=== PATIENT | female | born 1970 | race Caucasian/White ===

== ENCOUNTER 2024-05-05 12:59 | Emergency (ER) | payer OTHER, SELFPAY ==
--- NOTE | ~2024-05-05 | US_ITS ---
CLINICAL HISTORY: pain from calf to thigh Right lower extremity venous duplex ultrasound Comparison: None Findings: The visualized deep veins are fully compressible with normal flow. No popliteal cyst. Lymph nodes with normal morphology in the right groin measure 0.6 cm in short axis. Impression: No deep vein thrombosis. This document has been electronically signed by: Tierra Reyna MD on 05/05/2024 14:17:38
[2024-05-05 13:03] VITALS: BP 168/93; PULSE 95; RESP 18; TEMP 36.6; O2SAT 98; BMI 28.0
--- NOTE | 2024-05-05 13:03 | ED.LOWEXIN ---
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 No new activity, no trauma. Patient states she develops acute sharp discomfort in the calf that radiates up to the knee. No unilateral calf pain or swelling. She denies that the limb is pale or cool to touch, no paresthesia. Related Data Previous Rx's ?Medication ?Instructions ?Recorded methocarbamol 750 mg tablet 750 mg PO Q8H PRN pain, moderate 05/05/24 #14 tabs Allergies Allergy/AdvReac Type Severity Reaction Status Date / Time Penicillins [PENICILLINS] Allergy Intermediate RASH Verified 05/05/24 13:04 penicillin V Allergy Unknown Rash Verified 05/05/24 13:04 Review of Systems Review of Systems: Yes all other systems are reviewed and are negative Constitutional: Constitutional: Denies fatigue and Denies fever(s) Cardiovascular: Cardiovascular: Denies chest pain and Denies dyspnea Respiratory: Respiratory: Denies dyspnea Musculoskeletal: Musculoskeletal: Denies arthralgias, Denies joint swelling, Reports muscle cramps, Denies numbness and Denies tingling Neurologic: Denies numbness and Denies tingling Endocrine: Endocrine: Denies fatigue PMFSH Past Medical History Attestation statement: The following information was validated with the patient. Social History Social History Advance Directives: No Advance Directives Information Provided: No Do you have a plan to hurt others: No Plan Physical Exam Vital Signs: Vital Signs: Last Vital Signs Temp 98.1 F 05/05/24 22:00 Pulse 77 05/05/24 22:00 Resp 16 05/05/24 22:00 BP 161/89 H 05/05/24 22:00 Pulse Ox 98 05/05/24 22:00 O2 Del Method Room Air 05/05/24 22:00 BMI result Body Mass Index 28.0 Const: Other: Alert, well-appearing Orientation/consciousness: patient oriented x3 Resp: Other: Nonlabored respiration Cardio: Other: Normal peripheral perfusion no pedal edema Skin: Other: Warm dry no rash Neuro: General: patient oriented x3, no focal motor deficits and CN's II-XI intact bilaterally Extrem: Other: The right lower extremity is not swollen there was no overlying erythema, the limb is warm, well-perfused it is not cool to touch there was no pallor Psych: Other: Calm cooperative Course Course Course Narrative: This is a Rapid Medical Examination (RME) performed by Salas Maxwell PA-C in triage. Full HPI, ROS, assessment and treatment plan per primary provider in the Main ED. 53 yo female hx hypothyroid here for eval of deep pain that begins in her tigh lower leg and radiates up into her right hip. no back pain. no injury/ trauma. pcp prescribed muscle relaxer which she has been taking w/o improvement. no recent travel or long car rides. her son is concerned her thyroid my be contributing to her symtpoms. Plan: labs, venous duplex Medications Administered Discontinued Medications Generic Name Dose Route Start Last Admin Trade Name Freq PRN Reason Stop Dose Admin Sodium Chloride 1,000 mls @ 999 mls/hr 05/05/24 19:00 05/05/24 20:14 Ns IV 05/05/24 20:00 Infused .Q1H1M AMINA Infusion Sodium Chloride 1,000 mls @ 999 mls/hr 05/05/24 19:00 05/05/24 20:14 Ns IV 05/05/24 20:00 Infused .Q1H1M AMINA Infusion Methocarbamol 750 mg 05/05/24 20:35 05/05/24 20:55 Methocarbamol 750 Mg Tablet PO 05/05/24 20:36 750 mg ONCE ONE Administration Medical Decision Making Medical Decision Making [facility] Narrative: 53-year-old female with a 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 No new activity, no trauma. Patient states she develops acute sharp discomfort in the calf that radiates up to the knee. No unilateral calf pain or swelling. She denies that the limb is pale or cool to touch, no paresthesia. Problem: Hypothyroidism , diabetes History: Per patient I have considered the following differential diagnoses: Fracture, dislocation, DVT, arterial occlusion, septic joint, muscle cramps, peripheral neuropathy , hyperglycemia, HHS, DKA Plan: Labs and ultrasound were obtained from triage. There was no DVT. She has no mechanism of injury to suggest a fracture or dislocation and she is ambulatory, x-rays not warranted. Thought about arterial occlusion, however the limb is warm and well perfused. The pain is in the calf, not an a joint, septic joint least likely. She is having muscle cramps, perhaps she also has underlying neuropathy. We will send with a muscle relaxant, she can follow up with the primary care provider. Thyroid function was ordered from triage, unclear why given what the patient's chief complaint was. TSH markedly elevated as expected given she does not have a thyroid, her free T4 is low, she states she has struggled with this, I have relayed to her that she needs to follow up with her primary care to have her levothyroxine dosage increased. In addition, the patient was found to be hyperglycemic, but not in DKA there was no gap. She admits she did not take her insulin today, we will give IV fluids and recheck the sugar I have independently reviewed the following tests: Labs: No leukocytosis, not anemic, no electrolyte abnormality, TSH 48.99, free T4 less than 0.42, blood sugar 514, repeat after IV fluid resuscitation 259 Ultrasound right lower extremity:Right lower extremity venous duplex ultrasound Comparison: None Findings: The visualized deep veins are fully compressible with normal flow. No popliteal cyst. Lymph nodes with normal morphology in the right groin measure 0.6 cm in short axis. Impression: No deep vein thrombosis. This document has been electronically signed by: Tierra Reyna MD on 05/05/2024 14:17:38 Lab Data 05/05/24 13:20 05/05/24 13:20 Labs: Lab Results 05/05/24 05/05/24 05/05/24 Range/Units 13:20 15:29 15:29 WBC 6.6 (4.8-10.8) X10*3/uL RBC 4.85 (4.20-5.50) X10*6/uL Hgb 14.9 (12.0-16.0) g/dl Hct 39.7 (37.0-47.0) % MCV 81.9 (80.0-98.0) fL MCH 30.7 (27.0-33.0) pg MCHC 37.5 H (31.0-35.0) g/dl RDW 12.6 (11.0-16.0) % Plt Count 300 (160-400) X10*3/uL MPV 9.6 (9.4-12.3) fL Immature Gran % (Auto) 0.2 (0.0-0.4) % Neut % (Auto) 52.3 (45-73) % Lymph % (Auto) 37.1 (20-40) % [place] % (Auto) 6.8 (2-11) % Eos % (Auto) 2.7 (0-4) % Baso % (Auto) 0.9 (0-2) % Lymph # (Auto) 2.5 (1.2-4.9) X10*3/uL [place] # (Auto) 0.5 (0.1-1.2) X10*3/uL Eos # (Auto) 0.2 (0.0-0.4) X10*3/uL Baso # (Auto) 0.1 (0.0-0.2) X10*3/uL Abs Immat Gran (auto) 0.01 (0.00-0.03) X10*3/uL Absolute Neuts (auto) 3.5 (2.0-8.3) x10*3/uL Absolute Nucleated RBC 0.000 (0.0-0.012) X10*3/uL Nucleated RBC % (auto) 0.0 (0.0-0.2) /100WBC VBG pH 7.43 7.43 (7.32-7.43) VBG pCO2 52 mmHg VBG pO2 mmHg VBG HCO3 (22-26) mmol/L VBG O2 Saturation % VBG Base Excess mmol/L Sodium 131 L (135-145) mmol/L Potassium 4.1 (3.3-5.1) mmol/L Chloride 96 (96-108) mmol/L Carbon Dioxide 26 (22-29) mmol/L Anion Gap 13 (12-20) BUN 9 (9-16) mg/dL Creatinine 1.22 (0.5-1.4) mg/dL Estim Creat Clear Calc 51.3 Estimated GFR 46 POC Glucose (60-115) mg/dL Random Glucose 514 H* (60-115) mg/dL Calcium 9.9 (8.4-10.2) mg/dL Magnesium 2.0 (1.6-2.6) mg/dL Total Bilirubin 0.7 (0.0-1.0) mg/dL AST 20 (5-31) U/L ALT 20 (0-31) U/L Alkaline Phosphatase 99 (39-117) U/L Total Creatine Kinase 92 (26-140) U/L Total Protein 8.3 H (6.5-8.0) g/dL Albumin 4.7 (3.5-5.0) g/dL Beta-Hydroxybutyrate 0.20 (0.02-0.27) mmol/L TSH 48.99 H (0.32-4.0) uIU/mL Free T4 < 0.42 L (0.71-1.85) ng/dL 05/05/24 05/05/24 05/05/24 Range/Units 15:29 15:29 15:29 WBC (4.8-10.8) X10*3/uL RBC (4.20-5.50) X10*6/uL Hgb (12.0-16.0) g/dl Hct (37.0-47.0) % MCV (80.0-98.0) fL MCH (27.0-33.0) pg MCHC (31.0-35.0) g/dl RDW (11.0-16.0) % Plt Count (160-400) X10*3/uL MPV (9.4-12.3) fL Immature Gran % (Auto) (0.0-0.4) % Neut % (Auto) (45-73) % Lymph % (Auto) (20-40) % [place] % (Auto) (2-11) % Eos % (Auto) (0-4) % Baso % (Auto) (0-2) % Lymph # (Auto) (1.2-4.9) X10*3/uL [place] # (Auto) (0.1-1.2) X10*3/uL Eos # (Auto) (0.0-0.4) X10*3/uL Baso # (Auto) (0.0-0.2) X10*3/uL Abs Immat Gran (auto) (0.00-0.03) X10*3/uL Absolute Neuts (auto) (2.0-8.3) x10*3/uL Absolute Nucleated RBC (0.0-0.012) X10*3/uL Nucleated RBC % (auto) (0.0-0.2) /100WBC VBG pH (7.32-7.43) VBG pCO2 52 mmHg VBG pO2 38 38 mmHg VBG HCO3 34 H 34 H (22-26) mmol/L VBG O2 Saturation 57.0 % VBG Base Excess mmol/L Sodium (135-145) mmol/L Potassium (3.3-5.1) mmol/L Chloride (96-108) mmol/L Carbon Dioxide (22-29) mmol/L Anion Gap (12-20) BUN (9-16) mg/dL Creatinine (0.5-1.4) mg/dL Estim Creat Clear Calc Estimated GFR POC Glucose (60-115) mg/dL Random Glucose (60-115) mg/dL Calcium (8.4-10.2) mg/dL Magnesium (1.6-2.6) mg/dL Total Bilirubin (0.0-1.0) mg/dL AST (5-31) U/L ALT (0-31) U/L Alkaline Phosphatase (39-117) U/L Total Creatine Kinase (26-140) U/L Total Protein (6.5-8.0) g/dL Albumin (3.5-5.0) g/dL Beta-Hydroxybutyrate (0.02-0.27) mmol/L TSH (0.32-4.0) uIU/mL Free T4 (0.71-1.85) ng/dL 05/05/24 05/05/24 05/05/24 Range/Units 15:29 15:29 21:53 WBC (4.8-10.8) X10*3/uL RBC (4.20-5.50) X10*6/uL Hgb (12.0-16.0) g/dl Hct (37.0-47.0) % MCV (80.0-98.0) fL MCH (27.0-33.0) pg MCHC (31.0-35.0) g/dl RDW (11.0-16.0) % Plt Count (160-400) X10*3/uL MPV (9.4-12.3) fL Immature Gran % (Auto) (0.0-0.4) % Neut % (Auto) (45-73) % Lymph % (Auto) (20-40) % [place] % (Auto) (2-11) % Eos % (Auto) (0-4) % Baso % (Auto) (0-2) % Lymph # (Auto) (1.2-4.9) X10*3/uL [place] # (Auto) (0.1-1.2) X10*3/uL Eos # (Auto) (0.0-0.4) X10*3/uL Baso # (Auto) (0.0-0.2) X10*3/uL Abs Immat Gran (auto) (0.00-0.03) X10*3/uL Absolute Neuts (auto) (2.0-8.3) x10*3/uL Absolute Nucleated RBC (0.0-0.012) X10*3/uL Nucleated RBC % (auto) (0.0-0.2) /100WBC VBG pH (7.32-7.43) VBG pCO2 mmHg VBG pO2 mmHg VBG HCO3 (22-26) mmol/L VBG O2 Saturation 57.0 % VBG Base Excess 8.6 8.6 mmol/L Sodium (135-145) mmol/L Potassium (3.3-5.1) mmol/L Chloride (96-108) mmol/L Carbon Dioxide (22-29) mmol/L Anion Gap (12-20) BUN (9-16) mg/dL Creatinine (0.5-1.4) mg/dL Estim Creat Clear Calc Estimated GFR POC Glucose 259 H (60-115) mg/dL Random Glucose (60-115) mg/dL Calcium (8.4-10.2) mg/dL Magnesium (1.6-2.6) mg/dL Total Bilirubin (0.0-1.0) mg/dL AST (5-31) U/L ALT (0-31) U/L Alkaline Phosphatase (39-117) U/L Total Creatine Kinase (26-140) U/L Total Protein (6.5-8.0) g/dL Albumin (3.5-5.0) g/dL Beta-Hydroxybutyrate (0.02-0.27) mmol/L TSH (0.32-4.0) uIU/mL Free T4 (0.71-1.85) ng/dL Discharge Plan Discharge Clinical Impression: Muscle cramping Patient Disposition: Home, Self-Care Instructions: Leg Cramps (ED) Additional Instructions: The ultrasound of the right lower extremity revealed no clot. See home care instructions for your leg cramps. Use the methocarbamol as needed when cramping occurs. To medication can cause drowsiness, do not drive or operate machinery while taking the medication. Incidentally, your thyroid hormone level was low, you need to call your primary care provider to have your levothyroxine dosage increased, call tomorrow. Prescriptions: New methocarbamol 750 mg tablet 750 mg PO Q8H PRN (Reason: pain, moderate) Qty: 14 0RF Interventions: ED Discharge Assessment Last Done: 05/05/24 22:00 Print Language: Vietnamese
[2024-05-05 13:31] LABS: MANUAL DIFF FLAG NO
[2024-05-05 13:33] LABS: Basophils Absolute Auto 0.1 X10*3/uL (0.0-0.2); Basophils Percent Auto 0.9 % (0-2); Eosinophils Absolute Auto 0.2 X10*3/uL (0.0-0.4); Eosinophils Percent Auto 2.7 % (0-4); Hematocrit 39.7 % (37.0-47.0); Hemoglobin 14.9 g/dl (12.0-16.0); Imm Gran Abs Auto 0.01 X10*3/uL (0.00-0.03); Imm Gran Pct Auto 0.2 % (0.0-0.4); Lymphocytes Absolute Auto 2.5 X10*3/uL (1.2-4.9); Lymphocytes Percent Auto 37.1 % (20-40); Mean Corpuscular HGB Conc 37.5 g/dl (31.0-35.0); Mean Corpuscular Hemoglobin 30.7 pg (27.0-33.0); Mean Corpuscular Volume 81.9 fL (80.0-98.0); Mean Platelet Volume 9.6 fL (9.4-12.3); Monocytes Absolute Auto 0.5 X10*3/uL (0.1-1.2); Monocytes Percent Auto 6.8 % (2-11); Neutrophils Absolute Auto 3.5 x10*3/uL (2.0-8.3); Neutrophils Percent Auto 52.3 % (45-73); Platelet Count 300 X10*3/uL (160-400); Red Blood Count 4.85 X10*6/uL (4.20-5.50); Red Cell Distribution Width 12.6 % (11.0-16.0); White Blood Count 6.6 X10*3/uL (4.8-10.8)
[2024-05-05 14:02] LABS: Alanine Aminotransferase 20 U/L (0-31); Albumin Level 4.7 g/dL (3.5-5.0); Alkaline Phosphatase 99 U/L (39-117); Anion Gap 13 (12-20); Aspartate Amino Transferase 20 U/L (5-31); Bilirubin Total 0.7 mg/dL (0.0-1.0); Blood Urea Nitrogen 9 mg/dL (9-16); Calcium 9.9 mg/dL (8.4-10.2); Carbon Dioxide 26 mmol/L (22-29); Chloride 96 mmol/L (96-108); Creatinine Clr Calc Pharmacy 51.3; Estimated Glomerular Filt Rate 46; Glucose Random 514 mg/dL (60-115); Potassium 4.1 mmol/L (3.3-5.1); Sodium 131 mmol/L (135-145); Total Protein 8.3 g/dL (6.5-8.0)
[2024-05-05 14:11] LABS: TSH reflex Free T4 48.99 uIU/mL (0.32-4.0)
[2024-05-05 14:58] LABS: Free T4 (Free Thyroxine) < 0.42 ng/dL (0.71-1.85)
[2024-05-05 15:55] LABS: VBG Base Excess 8.6 mmol/L; VBG HCO3 34 mmol/L (22-26); VBG pCO2 52 mmHg; VBG pH 7.43 (7.32-7.43); VBG pO2 38 mmHg
[2024-05-05 15:56] LABS: VBG Base Excess 8.6 mmol/L; VBG HCO3 34 mmol/L (22-26); VBG pCO2 52 mmHg; VBG pH 7.43 (7.32-7.43); VBG pO2 38 mmHg; Venous Blood Gas Refer to POC result
[2024-05-05 17:48] VITALS: BP 158/99; PULSE 87; RESP 19; TEMP 36.1; O2SAT 98
--- OUTSIDE RECORDS SUMMARY | 2024-05-05 19:05 | XMS_ITS | Continuity of Care Document ---
Author Organization [facility] Adult Address [address] [place] [address]- Care Team Providers Care Teacher Advisor Name Role Phone Justine Kimbrough NP Primary Care Physician Encounter [facility] Date(s): 03/30/24 - 04/29/24 [facility] Adult [address] [place], [place] [address] Attending Physician: Admtr, Ar8 Admitting Physician: Admtr, Ar8 Referring Physician: Admtr, Ar8 Encounter Type: Triage Allergies, Adverse Reactions, Alerts Substance Criticality Severity Reaction Reaction Severity Status penicillin rash Active Medications albuterol 0.083% inhalation solution 3 mL = 2.5 mg, Inhalation, Every 6 hours, PRN Wheezing/Shortness of Breath, dx asthma (J45.909), # 120 each, 3 Refills, Maintenance, 03/23/24 2:10:00 PM EST, Solution, [id number], Partial fill upon patient request if the prescription is for a schedule II opioid drug., 163, cm, 03/19/24 11:00:00 EST, Height Start Date: 03/23/24 Status: Ordered Quantity: 120.0 Unit: each Repeat number: 4 Alcohol Pads See Instructions, # 350 each, Refills 3, Tot. Refills 3, Maintenance, use before insulin 4x daily E10.9 90 day, 06/21/22 1:31:00 PM EST, Supply, 163, cm, 06/21/22 12:42:00 EST, Height, 75.9, kg, 12/03/21 17:35:00 EDT, Dry Weight Start Date: 06/21/22 Stop Date: 10/19/22 Status: Ordered Quantity: 350.0 Unit: each Repeat number: 4 Dexcom G6 Creative Art Therapist Dexcom G6 Creative Art Therapist, See Instructions, # 1 each, Refills 0, Tot. Refills 0, Maintenance, Dx: E11.65 to monitor blood glucose, 08/29/23 11:42:00 AM EDT, Supply Start Date: 08/29/23 Status: Ordered Quantity: 1.0 Unit: each Repeat number: 1 Dexcom G6 Sensor 3-pack Dexcom G6 Sensor 3-pack, See Instructions, # 3 kit, Refills 8, Tot. Refills 8, Maintenance, E11.65 To monitor blood glucose. Change sensor every 10 days, 08/29/23 11:43:00 AM EDT, Supply Start Date: 08/29/23 Status: Ordered Quantity: 3.0 Unit: kit Repeat number: 9 Dexcom G6 Transmitter Dexcom G6 Transmitter, See Instructions, # 1 each, Refills 3, Tot. Refills 3, Maintenance, E11.65 To monitor blood glucose. Change every 90 days, 08/30/23 10:10:00 AM EDT, Supply, 163, cm, 08/25/23 14:48:00 EDT, Height, 75.9, kg, 12/03/21 17:35:00 EDT, Dry Weight Start Date: 08/30/23 Status: Ordered Quantity: 1.0 Unit: each Repeat number: 4 Diabetse Shoes (1 pair ) Diabetse Shoes (1 pair ), See Instructions, # 1 pack/packet, Refills 1, Tot. Refills 1, Maintenance, Wear diabetic shoes daily, E11.65, 01/17/20 2:54:00 PM EDT, Supply Start Date: 01/17/20 Status: Ordered Quantity: 1.0 Unit: pack/packet Repeat number: 2 diclofenac 1% topical gel 1 applicator, Topically, 4 times a day, # 100 Gm, 0 Refills, Maintenance, 12/15/23 2:23:00 PM EDT, Gel, [id number], Partial fill upon patient request if the prescription is for a schedule II opioid drug., 163, cm, 08/25/23 14:48:00 EDT, Height Start Date: 12/15/23 Status: Ordered Quantity: 100.0 Unit: g Repeat number: 1 EASY TOUCH ALCOHOL 70% PADS EASY TOUCH ALCOHOL 70% PADS, See Instructions, # 400 Unknown, 3 Refills, Maintenance, USE BEFORE INSULIN 4X DAILY E10.9, 08/11/23 9:34:00 PM EDT, 163, cm, 07/01/23 14:48:00 EST, Height, 75.9, kg, 12/03/21 17:35:00 EDT, Dry Weight Start Date: 08/11/23 Status: Ordered Quantity: 400.0 Unit: Unknown Repeat number: 1 esomeprazole 40 mg oral enteric coated capsule 1 capsule, By Mouth, 2 times a day, # 180 capsule, 3 Refills, Maintenance, 05/12/22 8:51:00 AM EST, [id number], 163, cm, 03/09/22 14:46:00 EST, Height, 75.9, kg, 12/03/21 17:35:00 EDT, Dry Weight Start Date: 05/12/22 Status: Ordered Quantity: 180.0 Unit: capsule Repeat number: 1 Fiasp FlexTouch 100 units/mL injectable solution See Instructions, MAXIMUM DAILY DOSE 150 UNITS E10.9 30 day, # 45 mL, 11 Refills, Maintenance, 01/16/24 8:29:00 AM EDT, [facility]pharmacy #[id number], 163, cm, 12/21/23 15:33:00 EDT, Height Start Date: 01/16/24 Status: Ordered Quantity: 45.0 Unit: mL Repeat number: 12 Flonase Allergy Relief 50 mcg/inh nasal spray 1 sprays = 50 mcg, Nares, Both, 2 times a day, shake well before using, # 9.9 mL, 0 Refills, Maintenance, 03/19/24 11:05:00 AM EST, [place], [id number], Partial fill upon patient request if theprescription is for a schedule II opioid drug., 163, cm, 03/19/24 11:00:00 EST, Height Start Date: 03/19/24 Status: Ordered Quantity: 9.9 Unit: mL Repeat number: 1 Indication: Acute upper respiratory infection, unspecified Freestyle Lite Lancets See Instructions, # 150 each, Refills 6, Tot. Refills 6, Maintenance, DMII (E11.9) Testing 3x daily, 07/02/21 3:16:00 PM EST, check 3times a day; Dx E11.9, Compound, 163, cm, 06/26/21 13:57:00 EST, Height, 85.2, kg, 10/28/20 6:52:00 EDT, Dry Weight Start Date: 07/02/21 Status: Ordered Quantity: 150.0 Unit: each Repeat number: 7 Freestyle Lite Monitor See Instructions, # 1 each, Refills 0, Tot. Refills 0, Maintenance, Use to test blood sugar 4-6 times per day as directed for Type 1 Diabetes Mellitus; to use when not able to use CGM, 08/25/23 3:15:00PM EDT, Supply, 163, cm, 08/25/23 14:48:00 EDT, Height, 75.9, kg, 12/03/21 17:35:00 EDT, Dry Weight Start Date: 08/25/23 Stop Date: 09/24/23 Status: Ordered Quantity: 1.0 Unit: each Repeat number: 1 FREESTYLE LITE TEST STRIP FREESTYLE LITE TEST STRIP, See Instructions, # 300 Unknown, 2 Refills, Maintenance, TEST 3 TIMES DAILY, 05/18/23 10:53:00 AM EST, 163, cm, 05/13/23 11:21:00 EST, Height, 75.9, kg, 12/03/21 17:35:00 EDT, Dry Weight Start Date: 05/18/23 Status: Ordered Quantity: 300.0 Unit: Unknown Repeat number: 1 FREESTYLE LITE TEST STRIP FREESTYLE LITE TEST STRIP, See Instructions, # 300 Unknown, 0 Refills, Maintenance, TEST 3 TIMES DAILY, 02/29/24 3:43:00 PM EST, 163, cm, 12/21/23 15:33:00 EDT, Height Start Date: 02/29/24 Status: Ordered Quantity: 300.0 Unit: Unknown Repeat number: 1 Freestyle Lite Test Strips See Instructions, # 600 each, Tot. Refills 2, Maintenance, to check blood sugar 3 times a day for Type 2 Diabetes Mellitus E11.65, 07/02/21 3:20:00 PM EST, Supply, 163, cm, 06/26/21 13:57:00 EST, Height, 85.2, kg, 10/28/20 6:52:00 EDT, Dry Weight Start Date: 07/02/21 Stop Date: 09/30/21 Status: Ordered Quantity: 600.0 Unit: each Repeat number: 3 Freestyle Lite Test Strips See Instructions, # 100 each, Maintenance, check blood glucose 4-6 times per day as directed, when does not have CGM, 08/25/23 3:19:00 PM EDT, Supply, 163, cm, 08/25/23 14:48:00 EDT, Height, 75.9, kg, 12/03/21 17:35:00 EDT, Dry Weight Start Date: 08/25/23 Status: Ordered Quantity: 100.0 Unit: each Repeat number: 1 Indication: Type 1 diabetes mellitus without complications Gloves Gloves, See Instructions, # 3 each, Refills 5, Tot. Refills 5, Maintenance, use as directed for dx urinary incontinence (R32) size medium, 12/09/22 12:56:00 PM EDT, Supply Start Date: 12/09/22 Status: Ordered Quantity: 3.0 Unit: each Repeat number: 6 Home Blood Pressure Monitor See Instructions, # 1 each, Maintenance, use to check blood pressure daily for DX HTN, 11/26/21 4:07:00 PM EDT, Supply Start Date: 11/26/21 Status: Ordered Quantity: 1.0 Unit: each Repeat number: 1 hydrochlorothiazide-losartan 25 mg-100 mg oral tablet 1 tablet, By Mouth, Daily, # 90 tablet, 1 Refills, Maintenance, 11/21/23 2:21:00 PM EDT, Tablet, [facility]/pharmacy #[id number], Partial fill upon patient request if the prescription is for a schedule II opioid drug., 1 tablet By Mouth Daily, 163, cm, 08/25/23 14:48:00 EDT, Height, 75.9, kg, 12/03/21 17:35:00 EDT, Dry Weight Start Date: 11/21/23 Status: Ordered Quantity: 90.0 Unit: tablet Repeat number: 2 Incontinence Wipes Incontinence Wipes, See Instructions, # 4 each, Refills 5, Tot. Refills 5, Maintenance, use as directed for dx urinary incontinence (R32), 12/09/22 12:56:00 PM EDT, Supply Start Date: 12/09/22 Status: Ordered Quantity: 4.0 Unit: each Repeat number: 6 ipratropium nasal 21 mcg/inh spray See Instructions, USE 2 SPRAYS IN EACH NASIL PASSAGE 3 TIMES A DAY NEEDED FOR CONGESTION, # 30 Unknown, 1 Refills, Maintenance, 01/13/22 9:11:00 PM EDT, [facility]/pharmacy #[id number], 30, USE 2 SPRAYS IN EACHNASIL PASSAGE 3 TIMES A DAY NEEDED FOR CONGESTION, 163, cm, 12/30/21 13:09:00 EDT, Height, 75.9,kg, 12/03/21 17:35:00 EDT, Dry Weight Start Date: 01/13/22 Stop Date: 04/25/23 Status: Ordered Quantity: 30.0 Unit: Unknown Repeat number: 2 Lantus Solostar Pen 100 units/mL subcutaneous solution See Instructions, TAKE 38 UNITS IN THE AM AND 38 UNITS DAILY AT BEDTIME VIA SUBCUTANEOUS INJECTION.E10.65 30 DAYS, # 90 Unknown, 3 Refills, Maintenance, 09/05/23 5:03:00 PM EDT, [id number], 163,cm, 08/25/23 14:48:00 EDT, Height, 75.9, kg, 12/03/21 17:35:00 EDT, Dry Weight Start Date: 09/05/23 Status: Ordered Quantity: 90.0 Unit: Unknown Repeat number: 1 levothyroxine 0.2 mg oral tablet See Instructions, take 2 pills one day, one pill 6 days weekly (8 pills weekly) orally, # 34 each, 11 Refills, Maintenance, 01/17/24 1:47:00 PM EDT, Tablet, [facility]/pharmacy #[id number], Partial fill upon patient request if the prescription is for a schedule II opioid drug., 163, cm, 12/21/23 15:33:00 EDT, Height Start Date: 01/17/24 Status: Ordered Quantity: 34.0 Unit: each Repeat number: 12 meloxicam 7.5 mg oral tablet 1 tablet = 7.5 mg, By Mouth, Daily, # 14 tablet, 0 Refills, Maintenance, 12/15/23 9:48:00 AM EDT, Tablet, [facility]/pharmacy #[id number], Partial fill upon patient request if the prescription is for a schedule IIopioid drug., 163, cm, 08/25/23 14:48:00 EDT, Height Start Date: 12/15/23 Stop Date: 12/29/23 Status: Ordered Quantity: 14.0 Unit: tablet Repeat number: 1 metoprolol 25 mg oral tablet 12.5 mg, 0.5, tablet, By Mouth, 2 times a day, # 90 tablet, Refills 2, Tot. Refills 2, Maintenance,05/12/22 3:38:00 PM EST, Route to Pharmacy Electronically, [facility]/pharmacy #[id number], Partial fill upon patient request if the prescription is for a schedule II opioid drug., 163, cm, 03/09/22 14:46:00 EST, Height, 75.9, kg, 12/03/21 17:35:00 EDT, Dry Weight Start Date: 05/12/22 Stop Date: 01/04/23 Status: Ordered Quantity: 90.0 Unit: tablet Repeat number: 3 Nebulizer Nebulizer, See Instructions, # 1 each, Refills 0, Tot. Refills 0, Maintenance, use as directed for dx asthma (J45.909) [place] [id number] [phone], 03/23/24 11:33:00 AM EST, Supply Start Date: 03/23/24 Status: Ordered Quantity: 1.0 Unit: each Repeat number: 1 Panty Liners Panty Liners, See Instructions, # 120 each, Refills 11, Tot. Refills 11, Maintenance, use as directed for dx urinary incontinence (R32) size medium, 12/14/22 10:50:00 AM EDT, Supply Start Date: 12/14/22 Status: Ordered Quantity: 120.0 Unit: each Repeat number: 12 Pen Dawn, 31 G x 5 mm BD Ultra Fine III See Instructions, # 350 each, Refills 3, Tot. Refills 3, Maintenance, use 4x daily with insulin E10.9 , 09/28/22 4:46:00 PM EDT, Supply, 163, cm, 09/28/22 15:33:00 EDT, Height, 75.9, kg, 12/03/21 17:35:00 EDT, Dry Weight Start Date: 09/28/22 Status: Ordered Quantity: 350.0 Unit: each Repeat number: 4 rosuvastatin 10 mg oral tablet 1 tablet, By Mouth, Daily, # 90 tablet, 1 Refills, Maintenance, 11/21/23 2:21:00 PM EDT, [id number], 163, cm, 08/25/23 14:48:00 EDT, Height, 75.9, kg, 12/03/21 17:35:00 EDT, Dry Weight Start Date: 11/21/23 Status: Ordered Quantity: 90.0 Unit: tablet Repeat number: 2 SUMAtriptan 50 mg oral tablet 1 tablet, By Mouth, Daily, PRN NEEDED FOR MIGRAINE HEADACHE,MAY REPEAT AFTER 2HRS UP TO A MAX OF2, # 9 tablet, 1 Refills, Maintenance, 02/14/24 8:20:00 AM EDT, [id number], 163, cm, 12/21/23 15:33:00 EDT, Height Start Date: 02/14/24 Status: Ordered Quantity: 9.0 Unit: tablet Repeat number: 1 Ventolin HFA 108 mcg/inh inhalation aerosol with adapter 2 puffs, Inhalation, Every 4 hours, PRN NEEDED FOR WHEEZING, # 18 each, 5 Refills, Maintenance, 08/12/23 12:12:00 AM EDT, [id number], 163, cm, 07/01/23 14:48:00 EST, Height, 75.9, kg, 12/03/21 17:35:00 EDT, Dry Weight Start Date: 08/12/23 Stop Date: 02/08/24 Status: Ordered Quantity: 18.0 Unit: each Repeat number: 6 Vitamin D3 1000 intl units oral tablet 1 tablet = 25 mcg, By Mouth, Daily, # 90 tablet, 3 Refills, Maintenance, 02/25/24 2:50:00 PM EDT, Tablet, [id number], Partial fill upon patient request if the prescription is for a schedule IIopioid drug., 163, cm, 12/21/23 15:33:00 EDT, Height Start Date: 02/25/24 Stop Date: 02/19/25 Status: Ordered Quantity: 90.0 Unit: tablet Repeat number: 4 Problem List Condition Confirmation Course Effective Dates Status H ealth Status Informant Asthma Confirmed Active Obesity (BMI 30-39.9) Confirmed Active Carpal tunnel syndrome Confirmed Active Diabetic neuropathy Confirmed Active Follicular cancer of thyroid Confirmed Active Hiatal hernia with GERD Confirmed Active GERD (gastroesophageal reflux disease) Confirmed Active Hx of heart surgery Confirmed Active Hx of thyroidectomy Confirmed Active Hyperlipidemia Confirmed Active Hypertension Confirmed Active Insomnia Confirmed Active 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 Menopause Confirmed Active Anxiety and depression Confirmed Active Palpitations Confirmed Active Hx of colonoscopy with polypectomy Confirmed Active Colon polyps Confirmed Active Hypothyroidism, postsurgical Confirmed Active Hepatic steatosis Confirmed Active Type 1 diabetes Confirmed Active Vitamin D deficiency Confirmed Active WPW (Myujk-Rscgghqhy-Ssis e syndrome) Confirmed Active Social History Social History Type Response Smoking Status Never smoker entered on: 09/30/17 Sex Sex Representation Female (finding) Radiology * Event Display: CT Scan Abdomen, Non- BH Authored Date: MG Breast Views * Event Display: MM Mammogram Authored Date: Patient Care team information Care Team Personnel Name: Samaria Gomez RN Position: [facility] ED RN W/OE and Tasks Member Role: Primary Care Nurse Name: Price NICOLAS, Rose Wing Position: [facility] Onco RN Member Role: Primary Care Nurse Name: Addie Whitlock Position: [facility] Outreach Member Role: Lifetime Consulting Physician Name: Justine Kimbrough NP Position: [facility] PCO Associate Professional Member Role: PCP Address: [address] [place] [phone]- Telecom: Care Team Related Persons Name: BRIAN SILVESTRE Name: BANDAR LEE Insurance Providers Guarantor name: [facility] Information #: 1 Payer: [facility] CARE ALLIANCE/ONE CARE Member Number: NA Policy Number: NA Group Number: NA
--- OUTSIDE RECORDS SUMMARY | 2024-05-05 19:05 | XMS_ITS | Continuity of Care Document ---
Author Organization [facility] Adult Address [address] [place] [address]- Care Team Providers Care [employer] Name Role Phone Luis E THOMAS, Justine Al Primary Care Physician Encounter [facility] Date(s): 03/23/24 - 04/22/24 [facility] [address] [place], [place] [address] Encounter Type: Triage Allergies, Adverse Reactions, Alerts Substance Criticality Severity Reaction Reaction Severity Status penicillin rash Active Medications albuterol 0.083% inhalation solution 3 mL = 2.5 mg, Inhalation, Every 6 hours, PRN Wheezing/Shortness of Breath, dx asthma (J45.909), # 120 each, 3 Refills, Maintenance, 03/23/24 2:10:00 PM EST, Solution, [facility]/pharmacy #[id number], Partial fill upon patient request if [...] Unit: each Repeat number: 4 Dexcom G6 Housekeeper Manager Dexcom G6 Housekeeper Manager, See Instructions, # 1 each, Refills 0, [...] Maintenance, 12/15/23 2:23:00 PM EDT, [facility], [id number], Partial fill upon patient request if the [...] 3 Refills, Maintenance, 05/12/22 8:51:00 AM EST, [id number], 163, cm, 03/09/22 14:46:00 EST, Height, 75.9, kg, 12/03/21 17:35:00 EDT, Dry Weight Start Date: 05/12/22 Status: Ordered Quantity: 180.0 Unit: capsule Repeat number: 1 Fiasp FlexTouch 100 units/mL injectable solution See Instructions, MAXIMUM DAILY DOSE 150 UNITS E10.9 30 day, # 45 mL, 11 Refills, Maintenance, 01/16/24 8:29:00 AM EDT, [facility]/pharmacy #0957, 163, cm, 12/21/23 15:33:00 EDT, Height Start Date: 01/16/24 Status: Ordered Quantity: 45.0 Unit: mL Repeat number: 12 Flonase Allergy Relief 50 mcg/inh nasal spray 1 sprays = 50 mcg, Nares, Both, 2 times a day, shake well before using, # 9.9 mL, 0 Refills, Maintenance, 03/19/24 11:05:00 AM EST, [place], [facility]/pharmacy #0957, Partial fill upon patient request if theprescription is for a schedule II opioid drug., 163, cm, 03/19/24 11:00:00 EST, Height Start Date: 03/19/24 Status: Ordered Quantity: 9.9 Unit: mL Repeat number: 1 Indication: Acute upper respiratory infection, unspecified Freestyle Lite Lancets See Instructions, # 150 each, Refills 6, Tot. Refills 6, Maintenance, DMII (E11.9) Testing 3x daily, 3/10/22 3:16:00 PM EST, check 3times a day; [...] Refills, Maintenance, 11/21/23 2:21:00 PM EDT, Tablet, [facility]/pharmacy #0957, Partial fill upon patient request if [...] 1 Refills, Maintenance, 01/13/22 9:11:00 PM EDT, [facility]/pharmacy #0957, 30, USE 2 SPRAYS IN EACHNASIL [...] 3 Refills, Maintenance, 09/05/23 5:03:00 PM EDT, [id number], 163,cm, 08/25/23 14:48:00 EDT, Height, 75.9, kg, 12/03/21 17:35:00 EDT, Dry Weight Start Date: 09/05/23 Status: Ordered Quantity: 90.0 Unit: Unknown Repeat number: 1 levothyroxine 0.2 mg oral tablet See Instructions, take 2 pills one day, one pill 6 days weekly (8 pills weekly) orally, # 34 each, 11 Refills, Maintenance, 01/17/24 1:47:00 PM EDT, Tablet, [facility]/pharmacy #0957, Partial fill upon patient request if the prescription is for a schedule II opioid drug., 163, cm, 12/21/23 15:33:00 EDT, Height Start Date: 01/17/24 Status: Ordered Quantity: 34.0 Unit: each Repeat number: 12 meloxicam 7.5 mg oral tablet 1 tablet = 7.5 mg, By Mouth, Daily, # 14 tablet, 0 Refills, Maintenance, 12/15/23 9:48:00 AM EDT, Tablet, [facility]/pharmacy #0957, Partial fill upon patient request if [...] 3:38:00 PM EST, Route to Pharmacy Electronically, [facility]/pharmacy #[id number], Partial fill upon patient request if the prescription is for a schedule II opioid drug., 163, cm, 03/09/22 14:46:00 EST, Height, 75.9, kg, 12/03/21 17:35:00 EDT, Dry Weight Start Date: 05/12/22 Stop Date: 01/04/23 Status: Ordered Quantity: 90.0 Unit: tablet Repeat number: 3 Nebulizer Nebulizer, See Instructions, # 1 each, Refills 0, Tot. Refills 0, Maintenance, use as directed for dx asthma (J45.909) [place] [id number] [phone], 03/23/24 11:33:00 AM EST, Supply Start Date: 03/23/24 Status: Ordered Quantity: 1.0 Unit: each Repeat number: 1 Panty Liners Panty Liners, See Instructions, # 120 each, Refills 11, Tot. Refills 11, Maintenance, use as directed for dx urinary incontinence (R32) size medium, 12/14/22 10:50:00 AM EDT, Supply Start Date: 12/14/22 Status: Ordered Quantity: 120.0 Unit: each Repeat number: 12 Pen [place], 31 G x 5 mm BD Ultra [...] Maintenance, 02/14/24 8:20:00 AM EDT, [id number], 163, cm, 12/21/23 15:33:00 EDT, Height Start [...] Active Vitamin D deficiency Confirmed Active WPW (Gxpmu-Svgsuetml-Pgoh e syndrome) Confirmed Active Social History Social History Type Response Smoking Status Never smoker entered on: 09/30/17 Sex Sex Representation Female (finding) Patient Care team information Care Team Personnel Name: Samaria Gomez RN Position: [facility] ED RN W/OE and Tasks Member Role: Primary Care Nurse Name: Price NICOLAS, Rose Wing Position: [facility] Onco RN Member Role: Primary Care Nurse Name: Addie Whitlock Position: [facility] Outreach Member Role: Lifetime Consulting Physician Name: Justine Kimbrough NP Position: [facility] PCO Associate Professional Member Role: PCP Address: [address] [place] [id number] Telecom: Care Team Related Persons Name: BRIAN SILVESTRE Name: BANDAR LEE Insurance Providers Guarantor name: [facility] Information #: 1 Payer: [facility] CARE ALLIANCE/ONE CARE Member Number: NA Policy Number: NA Group Number: NA
--- OUTSIDE RECORDS SUMMARY | 2024-05-05 19:05 | XMS_ITS | Continuity of Care Document ---
Author Organization [facility] Adult Address [address] [place] [address]- Care Team Providers Care Gluten Settling Tender Name Role Phone Luis E THOMAS, Justine Al Primary Care Physician [place] [facility] [place]/23[place]24 - 04/22/24 [facility] Adult [address], [place] [address] Encounter Type: Triage Allergies, Adverse Reactions, Alerts Substance Criticality Severity Reaction Reaction Severity Status penicillin rash Active Medications albuterol 0.083% inhalation solution 3 mL = 2.5 mg, Inhalation, Every 6 hours, PRN Wheezing/Shortness of Breath, dx asthma (J45.909), # 120 each, 3 Refills, Maintenance, 03/23/24 2:10:00 PM EST, Solution, [facility]/pharmacy #[id number], Partial fill upon patient request [...] Unit: each Repeat number: 4 Dexcom G6 Winding Operator Dexcom G6 Winding Operator, See Instructions, # 1 each, Refills 0, [...] Maintenance, 12/15/23 2:23:00 PM EDT, Gel, [id number], Partial fill upon patient request if the [...] Maintenance, 05/12/22 8:51:00 AM EST, [facility], 163, cm, 03/09/22 14:46:00 EST, Height, 75.9, kg, 12/03/21 17:35:00 EDT, Dry Weight Start Date: 05/12/22 Status: Ordered Quantity: 180.0 Unit: capsule Repeat number: 1 Fiasp FlexTouch 100 units/mL injectable solution See Instructions, MAXIMUM DAILY DOSE 150 UNITS E10.9 30 day, # 45 mL, 11 Refills, Maintenance, 01/16/24 8:29:00 AM EDT, [facility]/pharmacy #0957, 163, cm, 12/21/23 15:33:00 EDT, Height Start Date: 01/16/24 Status: Ordered Quantity: 45.0 Unit: mL Repeat number: 12 Flonase Allergy Relief 50 mcg/inh nasal spray 1 sprays = 50 mcg, Nares, Both, 2 times a day, shake well before using, # 9.9 mL, 0 Refills, Maintenance, 03/19/24 11:05:00 AM EST, [place], [facility]/pharmacy #0957, Partial fill upon patient request [...] Refills, Maintenance, 11/21/23 2:21:00 PM EDT, Tablet, [facility]/pharmacy #0957, Partial fill upon patient request [...] 1 Refills, Maintenance, 01/13/22 9:11:00 PM EDT, [facility]/pharmacy #0957, 30, USE 2 SPRAYS IN [...] 3 Refills, Maintenance, 09/05/23 5:03:00 PM EDT, [facility] STORE 32602, 163,cm, 08/25/23 14:48:00 EDT, Height, 75.9, kg, 12/03/21 17:35:00 EDT, Dry Weight Start Date: 09/05/23 Status: Ordered Quantity: 90.0 Unit: Unknown Repeat number: 1 levothyroxine 0.2 mg oral tablet See Instructions, take 2 pills one day, one pill 6 days weekly (8 pills weekly) orally, # 34 each, 11 Refills, Maintenance, 01/17/24 1:47:00 PM EDT, Tablet, [facility]/pharmacy #0957, Partial fill upon patient request if the prescription is for a schedule II opioid drug., 163, cm, 12/21/23 15:33:00 EDT, Height Start Date: 01/17/24 Status: Ordered Quantity: 34.0 Unit: each Repeat number: 12 meloxicam 7.5 mg oral tablet 1 tablet = 7.5 mg, By Mouth, Daily, # 14 tablet, 0 Refills, Maintenance, 12/15/23 9:48:00 AM EDT, Tablet, [facility]/pharmacy #0957, Partial fill upon patient request [...] 3:38:00 PM EST, Route to Pharmacy Electronically, [facility]/pharmacy #[id number], Partial fill upon patient request if the prescription is for a schedule II opioid drug., 163, cm, 03/09/22 14:46:00 EST, Height, 75.9, kg, 12/03/21 17:35:00 EDT, Dry Weight Start Date: 05/12/22 Stop Date: 01/04/23 Status: Ordered Quantity: 90.0 Unit: tablet Repeat number: 3 Nebulizer Nebulizer, See Instructions, # 1 each, Refills 0, Tot. Refills 0, Maintenance, use as directed for dx asthma (J45.909) [place] [phone], 03/23/24 11:33:00 AM EST, Supply Start Date: 03/23/24 Status: Ordered Quantity: 1.0 Unit: each Repeat number: 1 Panty Liners Panty Liners, See Instructions, # 120 each, Refills 11, Tot. Refills 11, Maintenance, use as directed for dx urinary incontinence (R32) size medium, 12/14/22 10:50:00 AM EDT, Supply Start Date: 12/14/22 Status: Ordered Quantity: 120.0 Unit: each Repeat number: 12 Pen [place], 31 G x 5 mm BD Ultra [...] Maintenance, 02/14/24 8:20:00 AM EDT, [facility], 163, cm, 12/21/23 15:33:00 EDT, Height Start [...] Active Vitamin D deficiency Confirmed Active WPW (Tilsn-Jorzgkaxd-Izdz e syndrome) Confirmed Active Social History Social History Type Response Smoking Status Never smoker entered on: 09/30/17 Sex Sex Representation Female (finding) Patient Care team information Care Team Personnel Name: Samaria Gomez RN Position: [facility] ED RN W/OE and Tasks Member Role: Primary Care Nurse Name: Price NICOLAS, Rose Wing Position: [facility] Onco RN Member Role: Primary Care Nurse Name: Addie Whitlock Position: [facility] Outreach Member Role: Lifetime Consulting Physician Name: Justine Kimbrough NP Position: [facility] PCO Associate Professional Member Role: PCP Address: [address] [place] [id number] Telecom: Care Team Related Persons Name: BRIAN SILVESTRE Name: BNADAR LEE Insurance Providers Guarantor name: [facility] Information #: 1 Payer: [facility] CARE ALLIANCE/ONE CARE Member Number: NA Policy Number: NA Group Number: NA
--- OUTSIDE RECORDS SUMMARY | 2024-05-05 19:05 | XMS_ITS | Continuity of Care Document ---
Author Organization [facility] Adult Address [address] [place] [address]- Care Team Providers Care Hand Candy Dipper Name Role Phone Justine Kimbrough NP Primary Care Physician Encounter [facility] [place] Date(s): 03/19/24 - 04/18/24 [facility] Adult [address] [place], [place] [address] Encounter Type: Triage Allergies, Adverse Reactions, Alerts Substance Criticality Severity Reaction Reaction Severity Status penicillin rash Active Medications albuterol 0.083% inhalation solution 3 mL = 2.5 mg, Inhalation, Every 6 hours, PRN Wheezing/Shortness of Breath, dx asthma (J45.909), # 120 each, 3 Refills, Maintenance, 03/23/24 2:10:00 PM EST, Solution, [facility]/pharmacy #0957, Partial fill upon patient request if [...] Unit: each Repeat number: 4 Dexcom G6 Chief Investigator Dexcom G6 Chief Investigator, See Instructions, # 1 each, Refills 0, [...] Maintenance, 12/15/23 2:23:00 PM EDT, Gel, [facility], Partial fill upon patient request if the [...] Maintenance, 05/12/22 8:51:00 AM EST, [facility], 163, cm, 03/09/22 14:46:00 EST, Height, 75.9, kg, 12/03/21 17:35:00 EDT, Dry Weight Start Date: 05/12/22 Status: Ordered Quantity: 180.0 Unit: capsule Repeat number: 1 Fiasp FlexTouch 100 units/mL injectable solution See Instructions, MAXIMUM DAILY DOSE 150 UNITS E10.9 30 day, # 45 mL, 11 Refills, Maintenance, 01/16/24 8:29:00 AM EDT, [facility]/pharmacy #0957, 163, cm, 12/21/23 15:33:00 EDT, Height Start Date: 01/16/24 Status: Ordered Quantity: 45.0 Unit: mL Repeat number: 12 Flonase Allergy Relief 50 mcg/inh nasal spray 1 sprays = 50 mcg, Nares, Both, 2 times a day, shake well before using, # 9.9 mL, 0 Refills, Maintenance, 03/19/24 11:05:00 AM EST, [place], [facility]/pharmacy #0957, Partial fill upon patient request if [...] Refills, Maintenance, 11/21/23 2:21:00 PM EDT, Tablet, [facility]/pharmacy #0957, Partial fill upon patient request if [...] 1 Refills, Maintenance, 01/13/22 9:11:00 PM EDT, [facility]/pharmacy #0957, 30, USE 2 SPRAYS IN [place] [...] 3 Refills, Maintenance, 09/05/23 5:03:00 PM EDT, [facility] STORE 93248, 163,cm, 08/25/23 14:48:00 EDT, Height, 75.9, kg, 12/03/21 17:35:00 EDT, Dry Weight Start Date: 09/05/23 Status: Ordered Quantity: 90.0 Unit: Unknown Repeat number: 1 levothyroxine 0.2 mg oral tablet See Instructions, take 2 pills one day, one pill 6 days weekly (8 pills weekly) orally, # 34 each, 11 Refills, Maintenance, 01/17/24 1:47:00 PM EDT, Tablet, [facility]/pharmacy #0957, Partial fill upon patient request if the prescription is for a schedule II opioid drug., 163, cm, 12/21/23 15:33:00 EDT, Height Start Date: 01/17/24 Status: Ordered Quantity: 34.0 Unit: each Repeat number: 12 meloxicam 7.5 mg oral tablet 1 tablet = 7.5 mg, By Mouth, Daily, # 14 tablet, 0 Refills, Maintenance, 12/15/23 9:48:00 AM EDT, Tablet, [facility]/pharmacy #0957, Partial fill upon patient request if [...] 3:38:00 PM EST, Route to Pharmacy Electronically, [facility]/pharmacy #[id number], Partial fill upon patient request if the [...] directed for dx asthma (J45.909) [place] [phone], 03/23/24 11:33:00 AM EST, Supply Start Date: 03/23/24 Status: Ordered Quantity: 1.0 Unit: each Repeat number: 1 Panty Liners Panty Liners, See Instructions, # 120 each, Refills 11, Tot. Refills 11, Maintenance, use as directed for dx urinary incontinence (R32) size medium, 12/14/22 10:50:00 AM EDT, Supply Start Date: 12/14/22 Status: Ordered Quantity: 120.0 Unit: each Repeat number: 12 Pen [place], 31 G x 5 mm BD Ultra [...] Maintenance, 02/14/24 8:20:00 AM EDT, [facility], 163, cm, 12/21/23 15:33:00 EDT, Height Start [...] Active Vitamin D deficiency Confirmed Active WPW (Mwvau-Kcutrzgow-Perz e syndrome) Confirmed Active Social History Social History Type Response Smoking Status Never smoker entered on: 09/30/17 Sex Sex Representation Female (finding) Patient Care team information Care Team Personnel Name: Samaria Gomez RN Position: [facility] ED RN W/OE and Tasks Member Role: Primary Care Nurse Name: Price NICOLAS, Rose Wing Position: [facility] Onco RN Member Role: Primary Care Nurse Name: Addie Whitlock Position: [facility] Outreach Member Role: Lifetime Consulting Physician Name: Justine Kimbrough NP Position: [facility] PCO Associate Professional Member Role: PCP Address: [address] [place] [id number] Telecom: Care Team Related Persons Name: BRIAN SILVESTRE Name: BANDAR LEE Insurance Providers Guarantor name: [facility] Information #: 1 Payer: [facility] CARE ALLIANCE/ONE CARE Member Number: NA Policy Number: NA Group Number: NA
--- OUTSIDE RECORDS SUMMARY | 2024-05-05 19:05 | XMS_ITS | Continuity of Care Document ---
Author Organization [facility] Adult Address [address] [place] [address]- Care Team Providers Care Manager Regional Name Role Phone Luis E THOMAS, Justine Al Primary Care Physician [phone] En[place] [facility] [place] Date(s[place] 03/23/24 - 04/22/24 [facility] Adult [address] [place], [place] [address] Encounter Type: Triage Allergies, Adverse Reactions, Alerts Substance Criticality Severity Reaction Reaction Severity Status penicillin rash Active Medications albuterol 0.083% inhalation solution 3 mL = 2.5 mg, Inhalation, Every 6 hours, PRN Wheezing/Shortness of Breath, dx asthma (J45.909), # 120 each, 3 Refills, Maintenance, 03/23/24 2:10:00 PM EST, Solution, [facility]/pharmacy #0957, Partial fill upon patient request if [...] Unit: each Repeat number: 4 Dexcom G6 Physician [facility] Dexcom G6 Phys[facility], See Instructions, # 1 each, Refills 0, [...] Maintenance, 12/15/23 2:23:00 PM EDT, Gel, [facility], Partial fill upon patient request if the [...] Maintenance, 05/12/22 8:51:00 AM EST, [facility], 163, cm, 03/09/22 14:46:00 EST, Height, 75.9, kg, 12/03/21 17:35:00 EDT, Dry Weight Start Date: 05/12/22 Status: Ordered Quantity: 180.0 Unit: capsule Repeat number: 1 Fiasp FlexTouch 100 units/mL injectable solution See Instructions, MAXIMUM DAILY DOSE 150 UNITS E10.9 30 day, # 45 mL, 11 Refills, Maintenance, 01/16/24 8:29:00 AM EDT, [facility]/pharmacy #0957, 163, cm, 12/21/23 15:33:00 EDT, Height Start Date: 01/16/24 Status: Ordered Quantity: 45.0 Unit: mL Repeat number: 12 Flonase Allergy Relief 50 mcg/inh nasal spray 1 sprays = 50 mcg, Nares, Both, 2 times a day, shake well before using, # 9.9 mL, 0 Refills, Maintenance, 03/19/24 11:05:00 AM EST, [place], [facility]/pharmacy #0957, Partial fill upon patient request if [...] Refills, Maintenance, 11/21/23 2:21:00 PM EDT, Tablet, [facility]/pharmacy #0957, Partial fill upon patient request if [...] 1 Refills, Maintenance, 01/13/22 9:11:00 PM EDT, [facility]/pharmacy #0957, 30, USE 2 SPRAYS IN EACHNASIL [...] 3 Refills, Maintenance, 09/05/23 5:03:00 PM EDT, [facility] STORE 67557, 163,cm, 08/25/23 14:48:00 EDT, Height, 75.9, kg, 12/03/21 17:35:00 EDT, Dry Weight Start Date: 09/05/23 Status: Ordered Quantity: 90.0 Unit: Unknown Repeat number: 1 levothyroxine 0.2 mg oral tablet See Instructions, take 2 pills one day, one pill 6 days weekly (8 pills weekly) orally, # 34 each, 11 Refills, Maintenance, 01/17/24 1:47:00 PM EDT, Tablet, [facility]/pharmacy #0957, Partial fill upon patient request if the prescription is for a schedule II opioid drug., 163, cm, 12/21/23 15:33:00 EDT, Height Start Date: 01/17/24 Status: Ordered Quantity: 34.0 Unit: each Repeat number: 12 meloxicam 7.5 mg oral tablet 1 tablet = 7.5 mg, By Mouth, Daily, # 14 tablet, 0 Refills, Maintenance, 12/15/23 9:48:00 AM EDT, Tablet, [facility]/pharmacy #0957, Partial fill upon patient request if [...] 3:38:00 PM EST, Route to Pharmacy Electronically, [facility]/pharmacy #0915, Partial fill upon patient request if the prescription is for a schedule II opioid drug., 163, cm, 03/09/22 14:46:00 EST, Height, 75.9, kg, 12/03/21 17:35:00 EDT, Dry Weight Start Date: 05/12/22 Stop Date: 01/04/23 Status: Ordered Quantity: 90.0 Unit: tablet Repeat number: 3 Nebulizer Nebulizer, See Instructions, # 1 each, Refills 0, Tot. Refills 0, Maintenance, use as directed for dx asthma (J45.909) [place] [phone], 03/23/24 11:33:00 AM EST, Supply Start Date: 03/23/24 Status: Ordered Quantity: 1.0 Unit: each Repeat number: 1 Panty Liners Panty Liners, See Instructions, # 120 each, Refills 11, Tot. Refills 11, Maintenance, use as directed for dx urinary incontinence (R32) size medium, 12/14/22 10:50:00 AM EDT, Supply Start Date: 12/14/22 Status: Ordered Quantity: 120.0 Unit: each Repeat number: 12 Pen [place], 31 G x 5 mm BD Ultra [...] Maintenance, 02/14/24 8:20:00 AM EDT, [facility], 163, cm, 12/21/23 15:33:00 EDT, Height Start [...] Active Vitamin D deficiency Confirmed Active WPW (Pmddp-Rvudlswsc-Xsvn e syndrome) Confirmed Active Social History Social History Type Response Smoking Status Never smoker entered on: 09/30/17 Sex Sex Representation Female (finding) Patient Care team information Care Team Personnel Name: Samaria Gomez RN Position: [facility] ED RN W/OE and Tasks Member Role: Primary Care Nurse Name: Price NICOLAS, Rose Wing Position: [facility] Onco RN Member Role: Primary Care Nurse Name: Addie Whitlock Position: [facility] Outreach Member Role: Lifetime Consulting Physician Name: Justine Kimbrough NP Position: [facility] PCO Associate Professional Member Role: PCP Address: [address] [place] [id number] Telecom: Care Team Related Persons Name: BRIAN SILVESTRE Name: BANDAR LEE Insurance Providers Guarantor name: [facility] Information #: 1 Payer: [facility] CARE ALLIANCE/ONE CARE Member Number: NA Policy Number: NA Group Number: NA
--- OUTSIDE RECORDS SUMMARY | 2024-05-05 19:05 | XMS_ITS | Continuity of Care Document ---
Author Organization [facility] Adult Address [address] [place] [address]- Care Team Providers Care Gasoline Service Attendant Name Role Phone Justine Kimbrough NP Primary Care Physician [id number] Date(s): 03/26/24 - 04/25/24 [facility] Adult [address] [place], [place] [address] Encounter Type: Triage Allergies, Adverse Reactions, Alerts Substance Criticality Severity Reaction Reaction Severity Status penicillin rash Active Medications albuterol 0.083% inhalation solution 3 mL = 2.5 mg, Inhalation, Every 6 hours, PRN Wheezing/Shortness of Breath, dx asthma (J45.909), # 120 each, 3 Refills, Maintenance, 03/23/24 2:10:00 PM EST, Solution, [facility]/pharmacy #0957, Partial fill upon patient request [...] Unit: each Repeat number: 4 Dexcom G6 Senior Internal Auditor Dexcom G6 Senior Internal Auditor, See Instructions, # 1 each, Refills 0, [...] Maintenance, 12/15/23 2:23:00 PM EDT, [facility], [facility], Partial fill upon patient request if the [...] Maintenance, 05/12/22 8:51:00 AM EST, [facility], 163, cm, 03/09/22 14:46:00 EST, Height, 75.9, kg, 12/03/21 17:35:00 EDT, Dry Weight Start Date: 05/12/22 Status: Ordered Quantity: 180.0 Unit: capsule Repeat number: 1 Fiasp FlexTouch 100 units/mL injectable solution See Instructions, MAXIMUM DAILY DOSE 150 UNITS E10.9 30 day, # 45 mL, 11 Refills, Maintenance, 01/16/24 8:29:00 AM EDT, [facility]/pharmacy #0957, 163, cm, 12/21/23 15:33:00 EDT, Height Start Date: 01/16/24 Status: Ordered Quantity: 45.0 Unit: mL Repeat number: 12 Flonase Allergy Relief 50 mcg/inh nasal spray 1 sprays = 50 mcg, Nares, Both, 2 times a day, shake well before using, # 9.9 mL, 0 Refills, Maintenance, 03/19/24 11:05:00 AM EST, [place], [facility]/pharmacy #0957, Partial fill upon patient request [...] Refills, Maintenance, 11/21/23 2:21:00 PM EDT, Tablet, [facility]/pharmacy #0957, Partial fill upon patient request [...] 1 Refills, Maintenance, 01/13/22 9:11:00 PM EDT, [facility]/pharmacy #0957, 30, USE 2 SPRAYS IN [...] 3 Refills, Maintenance, 09/05/23 5:03:00 PM EDT, [facility] STORE 04383, 163,cm, 08/25/23 14:48:00 EDT, Height, 75.9, kg, 12/03/21 17:35:00 EDT, Dry Weight Start Date: 09/05/23 Status: Ordered Quantity: 90.0 Unit: Unknown Repeat number: 1 levothyroxine 0.2 mg oral tablet See Instructions, take 2 pills one day, one pill 6 days weekly (8 pills weekly) orally, # 34 each, 11 Refills, Maintenance, 01/17/24 1:47:00 PM EDT, Tablet, [facility]/pharmacy #0957, Partial fill upon patient request if the prescription is for a schedule II opioid drug., 163, cm, 12/21/23 15:33:00 EDT, Height Start Date: 01/17/24 Status: Ordered Quantity: 34.0 Unit: each Repeat number: 12 meloxicam 7.5 mg oral tablet 1 tablet = 7.5 mg, By Mouth, Daily, # 14 tablet, 0 Refills, Maintenance, 12/15/23 9:48:00 AM EDT, Tablet, [facility]/pharmacy #0957, Partial fill upon patient request [...] 3:38:00 PM EST, Route to Pharmacy Electronically, [facility]/pharmacy #0924, Partial fill upon patient request if the [...] directed for dx asthma (J45.909) [place] [phone], 03/23/24 11:33:00 AM EST, Supply Start Date: 03/23/24 Status: Ordered Quantity: 1.0 Unit: each Repeat number: 1 Panty Liners Panty Liners, See Instructions, # 120 each, Refills 11, Tot. Refills 11, Maintenance, use as directed for dx urinary incontinence (R32) size medium, 12/14/22 10:50:00 AM EDT, Supply Start Date: 12/14/22 Status: Ordered Quantity: 120.0 Unit: each Repeat number: 12 Pen [place], 31 G x 5 mm BD Ultra [...] Maintenance, 02/14/24 8:20:00 AM EDT, [facility], 163, cm, 12/21/23 15:33:00 EDT, Height Start [...] Active Vitamin D deficiency Confirmed Active WPW (Fuzba-Niweuhymf-Cdqp e syndrome) Confirmed Active Social History Social History Type Response Smoking Status Never smoker entered on: 09/30/17 Sex Sex Representation Female (finding) Patient Care team information Care Team Personnel Name: Samaria Gomez RN Position: [facility] ED RN W/OE and Tasks Member Role: Primary Care Nurse Name: Price NICOLAS, Rose Wing Position: [facility] Onco RN Member Role: Primary Care Nurse Name: Addie Whitlock Position: [facility] Outreach Member Role: Lifetime Consulting Physician Name: Justine Kimbrough NP Position: [facility] PCO Associate Professional Member Role: PCP Address: [address] [place] [address] Telecom: Care Team Related Persons Name: BRIAN SILVESTRE Name: BANDAR LEE Insurance Providers Guarantor name: [facility] Information #: 1 Payer: [facility] CARE ALLIANCE/ONE CARE Member Number: NA Policy Number: NA Group Number: NA
--- OUTSIDE RECORDS SUMMARY | 2024-05-05 19:05 | XMS_ITS | Continuity of Care Document ---
Author Organization [facility] Adult Address [address] [place] [address]- Care Team Providers Care Immigration Case Manager Name Role Phone Justine Kimbrough NP Primary Care Phys[id number] Date[facility]s): 03/19/24 - 04/29/24 [facility] [address], [place] [address] Attending Physician: Not on Staff, Attending MD Encounter Type: Pre Office Visit Allergies, Adverse Reactions, Alerts Substance Criticality Severity [...] Unit: each Repeat number: 4 Dexcom G6 Vitamin Manager Dexcom G6 Vitamin Manager, See Instructions, # 1 each, Refills [...] Maintenance, 05/12/22 8:51:00 AM EST, [facility], 163, cm, 03/09/22 14:46:00 EST, Height, 75.9, kg, 12/03/21 17:35:00 EDT, Dry Weight Start Date: 05/12/22 Status: Ordered Quantity: 180.0 Unit: capsule Repeat number: 1 Fiasp FlexTouch 100 units/mL injectable solution See Instructions, MAXIMUM DAILY DOSE 150 UNITS E10.9 30 day, # 45 mL, 11 Refills, Maintenance, 01/16/24 8:29:00 AM EDT, [facility]/pharmacy #[id number], 163, cm, 12/21/23 15:33:00 EDT, Height Start Date: 01/16/24 Status: Ordered Quantity: 45.0 Unit: mL Repeat number: 12 Flonase Allergy Relief 50 mcg/inh nasal spray 1 sprays = 50 mcg, Nares, Both, 2 times a day, shake well before using, # 9.9 mL, 0 Refills, Maintenance, 03/19/24 11:05:00 AM EST, [place], [id number], Partial fill upon patient request [...] Refills, Maintenance, 11/21/23 2:21:00 PM EDT, Tablet, [facility]/pharmacy #[id number], Partial fill upon patient request if the [...] 1 Refills, Maintenance, 01/13/22 9:11:00 PM EDT, [facility]/pharmacy #[id number], 30, USE 2 SPRAYS [...] Maintenance, 09/05/23 5:03:00 PM EDT, [facility], 163,cm, 08/25/23 14:48:00 EDT, Height, 75.9, kg, 12/03/21 17:35:00 EDT, Dry Weight Start Date: 09/05/23 Status: Ordered Quantity: 90.0 Unit: Unknown Repeat number: 1 levothyroxine 0.2 mg oral tablet See Instructions, take 2 pills one day, one pill 6 days weekly (8 pills weekly) orally, # 34 each, 11 Refills, Maintenance, 01/17/24 1:47:00 PM EDT, Tablet, [facility]/pharmacy #[id number], Partial fill upon patient request if the prescription is for a schedule II opioid drug., 163, cm, 12/21/23 15:33:00 EDT, Height Start Date: 01/17/24 Status: Ordered Quantity: 34.0 Unit: each Repeat number: 12 meloxicam 7.5 mg oral tablet 1 tablet = 7.5 mg, By Mouth, Daily, # 14 tablet, 0 Refills, Maintenance, 12/15/23 9:48:00 AM EDT, Tablet, [facility]/pharmacy #[id number], Partial fill upon patient [...] 3:38:00 PM EST, Route to Pharmacy Electronically, [facility]/pharmacy #[id number], Partial fill upon patient [...] use as directed for dx asthma (J45.909) [place] [id number] [phone], 03/23/24 11:33:00 AM EST, Supply Start Date: 03/23/24 Status: Ordered Quantity: 1.0 Unit: each Repeat number: 1 Panty Liners Panty Liners, See Instructions, # 120 each, Refills 11, Tot. Refills 11, Maintenance, use as directed for dx urinary incontinence (R32) size medium, 12/14/22 10:50:00 AM EDT, Supply Start Date: 12/14/22 Status: Ordered Quantity: 120.0 Unit: each Repeat number: 12 Pen Etters, 31 G x 5 mm BD Ultra [...] Maintenance, 02/14/24 8:20:00 AM EDT, [facility], 163, cm, 12/21/23 15:33:00 EDT, Height Start [...] Active Vitamin D deficiency Confirmed Active WPW (Jjbjf-Lnxqgzbtd-Vrnt e syndrome) Confirmed Active Social History Social History Type Response Smoking Status Never smoker entered on: 09/30/17 Sex Sex Representation Female (finding) Patient Care team information Care Team Personnel Name: Samaria Gomez RN Position: [facility] ED RN W/OE and Tasks Member Role: Primary Care Nurse Name: Price NICOLAS, Rose Wing Position: [facility] Onco RN Member Role: Primary Care Nurse Name: Addie Whitlock Position: [facility] Outreach Member Role: Lifetime Consulting Physician Name: Justine Kimbrough NP Position: [facility] PCO Associate Professional Member Role: PCP Address: [address] [place] [address] Telecom: Care Team Related Persons Name: BRIAN SILVESTRE Name: BANDAR LEE Insurance Providers Guarantor name: [facility] Health [facility] Information #: 1 Payer: [facility]ONE CARE Member Number: [id number] Policy Number: NA Group Number: [facility] Health Plan Information #: 2 Payer: [facility] Member Number: [id number] Policy Number: NA Group Number: NA
[2024-05-05] MEDS: 0.9 % Sodium Chloride 1,000 ML 999 ML IV ×2 (19:13)
[2024-05-05 19:56] VITALS: BP 164/92; PULSE 74; RESP 16; TEMP 36.4; O2SAT 98
[2024-05-05] MEDS: methocarbamoL 750 MG TABLET PO (20:55)
[2024-05-05 21:27] VITALS: BP 161/89; PULSE 77; RESP 16; TEMP 36.7; O2SAT 98
[2024-05-05 21:58] LABS: Glucose, Whole Blood 259 mg/dL (60-115)
[2024-05-05 22:00] VITALS: BP 161/89; PULSE 77; RESP 16; TEMP 36.7; O2SAT 98
== END 2024-05-05 22:16 | disposition home or self-care (01) ==
PROVIDERS: Physician Assistant Medical; Emergency Provider Emergency Medicine; PCP Nurse Practitioner Family
DX: R25.2 Cramp and spasm (principal); M79.604 Pain in right leg
CPT/HCPCS: 36415; 80053; 82010; 82550; 82803; 82947; 83735; 84439; 84443; 85025; 93971; 96360; 99283; 99284

== ENCOUNTER → 2024-05-05 13:04 | Outpatient (BNV) | payer OTHER, SELFPAY | PROVIDERS: Visit Provider Radiology Diagnostic Radiology | DX: M79.661 Pain in right lower leg (principal) | CPT/HCPCS: 93971 ==

== ENCOUNTER 2024-11-26 15:26 | Emergency (ER) | payer OTHER, SELFPAY ==
--- OUTSIDE RECORDS SUMMARY | 2024-11-20 23:59 | XMS_ITS | Continuity of Care Document ---
Author Organization [facility] Adult Address [address] [place] [address]- Care Team Providers Care Certified Dialysis Technician Name Role Phone Brooklyn Little MD, [facility] Primary Care Physician Encounter [facility] Date(s): 10/21/24 - 11/20/24 [facility] Adult [address] [place], [place] [address] Encounter Type: Triage Allergies, Adverse Reactions, [...] Quantity: 120.0 Unit: each Repeat number: 4 BATH MAT BATH MAT, See Instructions, # 1 each, Refills 0, Tot. Refills 0, Maintenance, USE DIRECTED, DX M79.604 KAVITA [phone], 07/24/24 10:32:00 AM EDT, Supply Start Date: 07/24/24 Status: Ordered Quantity: 1.0 Unit: each Repeat number: 1 BD UF MINI PEN NEEDLE [id number] BD UF MINI PEN NEEDLE [id number], See Instructions, # 350 Unknown, 3 Refills, Maintenance, USE 4X DAILY WITH INSULIN E10.9 90DAY, 08/26/24 1:12:00 PM EDT, 163, cm, 06/18/24 15:54:00 EST, Height Start Date: 08/26/24 Status: Ordered Quantity: 350.0 Unit: Unknown Repeat number: 1 Dexcom G6 Hot Dip Plater Dexcom G6 Hot Dip Plater, See Instructions, # 1 each, Refills 0, Tot. Refills 0, Maintenance, Dx: E11.65 to monitor blood glucose, 08/29/23 11:42:00 AM EDT, Supply Start Date: 08/29/23 Status: Ordered Quantity: 1.0 Unit: each Repeat number: 1 Dexcom G6 sensor Dexcom G6 sensor, See Instructions, # 3 each, Refills 2, Tot. Refills 2, Maintenance, use to monitor bld glucose levels, change every 10 days E10.9, 10/29/24 11:40:00 AM EDT, Supply, 163, cm, 06/18/24 15:54:00 EST, Height Start Date: 10/29/24 Status: Ordered Quantity: 3.0 Unit: each Repeat number: 3 Dexcom G6 Transmitter Dexcom G6 Transmitter, See Instructions, # 1 each, Refills 2, Tot. Refills 2, Maintenance, E11.65 To monitor blood glucose. Change every 90 days, 09/18/24 2:01:00 PM EDT, Supply, 163, cm, 06/18/24 15:54:00 EST, Height Start Date: 09/18/24 Status: Ordered Quantity: 1.0 Unit: each Repeat number: 3 Diabetic Ensure Diabetic Ensure, See Instructions, # 60 each, Refills 11, Tot. Refills 11, Maintenance, drink two bottles daily for dx uncontrolled diabetes mellitus type 2 (E11.9) chocolate flavored, 06/18/24 1:43:00 PM EST, Supply Start Date: 06/18/24 Status: Ordered Quantity: 60.0 Unit: each Repeat number: 12 Diabetse Shoes (1 pair ) Diabetse Shoes [...] Refills, Maintenance, 12/15/23 2:23:00 PM EDT, Gel, [facility]/pharmacy #[id number], Partial fill [...] enteric coated capsule 1 capsule, By Mouth, Daily, # 30 capsule, 0 Refills, Maintenance, 11/07/24 3:54:00 PM EDT, [id number], 163, cm, 06/18/24 15:54:00 EST, Height Start Date: 11/07/24 Status: Ordered Quantity: 30.0 Unit: capsule Repeat number: 1 Fiasp FlexTouch 100 units/mL injectable solution See Instructions, MAXIMUM DAILY DOSE 150 UNITS E10.9 30 day, # 45 mL, 11 Refills, Maintenance, 01/16/24 8:29:00 AM EDT, [id number], 163, cm, 12/21/23 15:33:00 EDT, Height Start Date: 01/16/24 Status: Ordered Quantity: 45.0 Unit: mL Repeat number: 12 Flonase Allergy Relief 50 mcg/inh nasal spray 1 sprays = 50 mcg, Nares, Both, 2 times a day, shake well before using, # 9.9 mL, 0 Refills, Maintenance, 03/19/24 11:05:00 AM EST, [place], [facility], Partial fill upon patient request if theprescription is for a schedule II opioid drug., 163, cm, 03/19/24 11:00:00 EST, Height Start Date: 03/19/24 Status: Ordered Quantity: 9.9 Unit: mL Repeat number: 1 Indications: Acute upper respiratory infection, unspecified; Gloves Gloves, See Instructions, # 3 each, Refills 5, Tot. Refills 5, Maintenance, use as directed for dx urinary incontinence (R32) size medium, 12/09/22 12:56:00 PM EDT, Supply Start Date: 12/09/22 Status: Ordered Quantity: 3.0 Unit: each Repeat number: 6 glucose 4 gm oral tablet, chewable 4 tablet = 16 Gm, Chew, Once, PRN as needed for low blood sugar, may repeat in 15 to 20 minutes if blood sugar still < 60 mg/dL, # 50 tablet, 3 Refills, Soft Stop, 05/16/24 1:18:00 PM EST, Chew Tablet, [facility]/pharmacy #[id number], Partial fill upon patient request if the prescription is for a schedule II opioid drug., 163, cm, 05/16/24 12:19:00 EST, Height Start Date: 05/16/24 Status: Ordered Quantity: 50.0 Unit: tablet Repeat number: 4 Indications: Type 1 diabetes mellitus with hyperglycemia; Gvoke HypoPen 0.5 mg/0.1 mL subcutaneous solution 0.1 mL = 0.5 mg, Subcutaneous Injection, Once, may repeat once in 15 minutes, # 0.1 mL, 1 Refills, Soft Stop, 05/16/24 1:17:00 PM EST, Solution, [facility]/pharmacy #[id number], Partial fill upon patient request if the prescription is for a schedule II opioid drug., 163, cm, 05/16/24 12:19:00 EST, Height Start Date: 05/16/24 Status: Ordered Quantity: 0.1 Unit: mL Repeat number: 2 Indications: Type 1 diabetes mellitus with hyperglycemia; Home Blood Pressure Monitor See Instructions, # 1 each, Maintenance, use to check blood pressure daily for DX HTN, 11/26/21 4:07:00 PM EDT, Supply Start Date: 11/26/21 Status: Ordered Quantity: 1.0 Unit: each Repeat number: 1 hydrochlorothiazide-losartan 25 mg-100 mg oral tablet 1 tablet, By Mouth, Daily, # 90 tablet, 1 Refills, Maintenance, 08/08/24 4:18:00 PM EDT, [facility], 90, TAKE 1 TABLET BY MOUTH EVERY DAY, 163, cm, 06/18/24 15:54:00 EST, Height Start Date: 08/08/24 Status: Ordered Quantity: 90.0 Unit: tablet Repeat number: 1 Incontinence Wipes Incontinence Wipes, See Instructions, # [...] Quantity: 30.0 Unit: Unknown Repeat number: 2 isopropyl alcohol 70% topical pad See Instructions, USE BEFORE INSULIN 4 TIMES A DAY, # 400 Unknown, 3 Refills, Maintenance, 10/01/24 12:08:00 PM EDT, [facility], 100, USE BEFORE INSULIN 4 TIMES A DAY, 163, cm, 06/18/24 15:54:00 EST, Height Start Date: 10/01/24 Status: Ordered Quantity: 400.0 Unit: Unknown Repeat number: 1 VISHAL GEL ORTHOPEDIC LEG PILLOW VISHAL GEL ORTHOPEDIC LEG PILLOW, See Instructions, # 1 each, Refills 0, Tot. Refills 0, Maintenance,USE DIRECTED, DX LEG PAIN. [facility]. [facility] [phone], 10/18/24 12:20:00 PM EDT, Supply Start Date: 10/18/24 Status: Ordered Quantity: 1.0 Unit: each Repeat number: 1 Lantus Solostar Pen 100 units/mL subcutaneous solution See Instructions, TAKE 45 UNITS IN THE AM AND 45 UNITS DAILY AT BEDTIME VIA SUBCUTANEOUS INJECTION.E10.65 30 DAYS, # 90 Unknown, 1 Refills, Maintenance, 11/13/24 4:48:00 PM EDT, [facility], 163,cm, 06/18/24 15:54:00 EST, Height Start Date: 11/13/24 Status: Ordered Quantity: 90.0 Unit: Unknown Repeat number: 1 LEG WEDGE PILLOW LEG WEDGE PILLOW, See Instructions, # 1 each, Refills 0, Tot. Refills 0, Maintenance, USE DIRECTED, DX E11.40 KAVITA [phone], 07/26/24 1:57:00 PM EDT, Supply Start Date: 07/26/24 Status: Ordered Quantity: 1.0 Unit: each Repeat number: 1 meloxicam 7.5 mg oral tablet 1 tablet = 7.5 mg, By Mouth, Daily, # 14 tablet, 0 Refills, Maintenance, 05/02/24 2:12:00 PM EST, Tablet, [facility]/pharmacy #0957, Partial fill upon patient request if the prescription is for a schedule II opioid drug., 163, cm, 04/06/24 11:48:00 EST, Height Start Date: 05/02/24 Stop Date: 05/16/24 Status: Ordered Quantity: 14.0 Unit: tablet Repeat number: 1 metoprolol 25 mg oral tablet 12.5 mg, 0.5, tablet, By Mouth, 2 times a day, # 90 tablet, Refills 2, Tot. Refills 2, Maintenance,05/12/22 3:38:00 PM EST, Route to Pharmacy Electronically, [facility]/pharmacy #[id number], Partial fill [...] use as directed for dx asthma (J45.909) [facility] [phone], 03/23/24 11:33:00 AM EST, Supply Start Date: 03/23/24 Status: Ordered Quantity: 1.0 Unit: each Repeat number: 1 Panty Liners Panty Liners, See Instructions, # 120 each, Refills 11, Tot. Refills 11, Maintenance, use as directed for dx urinary incontinence (R32) size medium, 12/14/22 10:50:00 AM EDT, Supply Start Date: 12/14/22 Status: Ordered Quantity: 120.0 Unit: each Repeat number: 12 Pen [place], 31 G x 5 mm BD Ultra Fine III See Instructions, # 350 each, Refills 3, Tot. Refills 3, Maintenance, use 4x daily with insulin E10.9 , 08/24/24 2:44:00 PM EDT, Supply, 163, cm, 06/18/24 15:54:00 EST, Height Start Date: 08/24/24 Status: Ordered Quantity: 350.0 Unit: each Repeat number: 4 rosuvastatin 10 mg oral tablet 1 tablet, By Mouth, Daily, # 90 tablet, 1 Refills, Maintenance, 10/21/24 3:17:00 PM EDT, [facility], 163, cm, 06/18/24 15:54:00 EST, Height Start Date: 10/21/24 Status: Ordered Quantity: 90.0 Unit: tablet Repeat number: 1 SUMAtriptan 50 mg oral tablet 1 tablet, By Mouth, Daily, PRN NEEDED FOR MIGRAINE HEADACHE,MAY REPEAT AFTER 2HRS UP TO A MAX OF2, # 9 tablet, 1 Refills, Maintenance, 02/14/24 8:20:00 AM EDT, [facility], 163, cm, 12/21/23 15:33:00 EDT, Height Start Date: 02/14/24 Status: Ordered Quantity: 9.0 Unit: tablet Repeat number: 1 Synthroid 0.05 mg oral tablet See Instructions, 1 tablet By Mouth Tuesday through Tuesday, # 44 each, 6 Refills, Maintenance, 06/29/24 8:09:00 AM EST, Tablet, [id number], Partial fill upon patient request if the prescription is for a schedule II opioid drug., 163, cm, 06/18/24 15:54:00 EST, Height Start Date: 06/29/24 Status: Ordered Quantity: 44.0 Unit: each Repeat number: 7 Indications: Hypothyroidism, unspecified; Synthroid 0.2 mg oral tablet 1 tablet = 200 mcg, By Mouth, Daily, Unable to tolerate generic levothyroxine, # 60 tablet, 6 Refills, Maintenance, 06/29/24 8:09:00 AM EST, Tablet, [facility], Partial fill upon patient request if the prescription is for a schedule II opioid drug., 163, cm, 06/18/24 15:54:00 EST, Height Start Date: 06/29/24 Status: Ordered Quantity: 60.0 Unit: tablet Repeat number: 7 Indications: Hypothyroidism, unspecified; traZODone 50 mg oral tablet 50 mg, 1, tablet, By Mouth, Daily at bedtime, PRN, # 90 tablet, Refills 0, Tot. 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 ED RN W/OE and Tasks Member Role: Primary Care Nurse Name: Price NICOLAS, Rose Wing Position: [facility] Onco RN Member Role: Primary Care Nurse Name: Addie Whitlock Position: [facility] Outreach Member Role: Lifetime Consulting Physician Name: Vanessa Khan MD Position: [facility] Physician - Primary Care Member Role: PCP Address: [address] [place] [address] Telecom: Care Team Related Persons Name: BRIAN SILVESTRE Name: BANDAR LEE Insurance Providers Guarantor name: [facility] [employer] Plan Information #: 1 Payer: [facility] ONE CARE Payer Identifier: NA Member Number: [id number] Group Number: [id number] Subscriber Identifier: [id number] Relationship to Subscriber: self Coverage Type: Medicare Managed Care (Includes Medicare Advantage Plans) Coverage Verification Date: DEIRDRE Telecom: DEIRDRE Address:
[2024-11-26 15:35] VITALS: BP 187/84; PULSE 89; RESP 16; TEMP 36.3; O2SAT 98; BMI 27.5
--- NOTE | 2024-11-26 15:35 | ED.GENADULT ---
HPI - General Adult General Chief complaint: Back Pain/Injury Stated complaint: left leg pain /hx injection on rt leg for nerves Time Seen by Provider: 11/26/24 21:25 Source: patient Mode of arrival: ambulatory Limitations: no limitations History of Present Illness ED Provider: Dr. Jhoana Gao HPI narrative: 54-year-old female with a history of right-sided sciatic nerve pain, status post spine injection may presenting with left-sided pain that is been ongoing for the last couple of months since her injection. Admits that her pain on her right side significantly improved after getting the injection at the spine doctor's office. States that since she had been favoring her left side, the pain has become progressively worse. Has been taking her pregabalin 3 times a day for pain but reports that she was only prescribed it for once a day. She has since run out of her pain medication in his in severe pain. Last dose was 7 days ago. Patient denies associated fevers or chills, headaches or vision changes, stiff neck, loss of bowel or bladder control, urinary retention, direct trauma to the spine or specific injury, numbness/tingling/weakness of the extremities, IV drug use, history of recent instrumentation or injections into the spine. Related Data Previous Rx's ?Medication ?Instructions ?Recorded methocarbamol 750 mg tablet 750 mg PO Q8H PRN pain, moderate 05/05/24 #14 tabs pregabalin 200 mg capsule (Lyrica) 200 mg PO TID #90 caps 11/26/24 Allergies Allergy/AdvReac Type Severity Reaction Status Date / Time Penicillins (PENICILLINS) Allergy Intermediate RASH Verified 11/26/24 15:39 penicillin V Allergy Unknown Rash Verified 11/26/24 15:39 Review of Systems Review of Systems: as per HPI, full review of systems performed and negative but for the above mentioned pertinent positives and negatives. [facility], [facility] Past Medical History Attestation statement: The following information was validated with the patient. (Sciatica, no history of IV drug use) Social History Social History Smoked in Last 30 Days: No Use of substances other than those prescribed or required for medical reasons: No Advance Directives: No Advance Directives Information Provided: No Patient : No Physical Exam ED Exam Exam: GENERAL: Well-Appearing, conversant, no acute distress. SKIN: Normal skin color for ethnicity, warm, dry, no rashes noted. HEENT: Normocephalic, atraumatic, no stridor, posterior oropharynx nonerythematous, dentition intact, EOMI. NECK: Soft, supple, full ROM, midline structures nontender, no step-offs, no deformities, no lymphadenopathy. CHEST: Heart regular rate and rhythm, no murmurs, symmetric chest rise and fall. PULMONARY: Clear to auscultation bilaterally, no labored breathing, no wheezes/rhales/rhonchi. ABDOMINAL: Soft, nondistended, nontender, positive bowel sounds in all quadrants. : Deferred. MUSCULOSKELETAL: Normal tone, full range of motion, no deformities, no peripheral edema, no midline spine tenderness, no step-offs, tenderness overlying the left SI joint. NEURO: Alert and oriented x3, CN II through XII intact, equal strength and sensation bilateral upper and lower extremities, no focal neurologic deficits, +2/4 patellar reflexes bilaterally. PSYCHIATRIC: Normal affect, fluid speech, good eye contact and appropriate demeanor. Vital Signs: Vital Signs - 24 hr 11/26/24 15:35 11/26/24 20:37 11/26/24 22:51 Temperature 97.3 F 98.1 F 98.1 F Pulse Rate 89 81 81 Respiratory Rate 16 18 18 Blood Pressure 187/84 H 192/83 H 192/83 H Pulse Oximetry 98 100 100 Oxygen Delivery Method Room Air Room Air Room Air BMI result Body Mass Index 27.5 Course Course Course Narrative: RME performed by Tamiko Lagos PA-C. Patient is a 54 year old assigned female at presenting to the emergency department with a history of low back issues presenting with left leg pain. Patient states that she had an injection in her back for the right leg and that helped but now the left leg is bothering her. Detailed physical exam and review of systems are deferred to the board member. Patient placed back in the waiting room pending room availability. Medications Administered Discontinued Medications Generic Name Dose Route Start Last Admin Trade Name Freq PRN Reason Stop Dose Admin Acetaminophen 650 mg 11/26/24 22:25 11/26/24 22:44 Acetaminophen 325 Mg Tablet PO 11/26/24 22:26 650 mg ONCE ONE Administration Pregabalin 200 mg 11/26/24 22:25 11/26/24 22:44 Pregabalin 200 Mg Capsule PO 11/26/24 22:26 200 mg ONCE ONE Administration Medical Decision Making Medical Decision Making [facility] Narrative: Patient presents today with a chief complaint of back pain. Differential diagnosis includes musculoskeletal pain, osseous abnormality such as fracture or tumor, infection, spinal cord pathology such as cauda equina syndrome, ligamentous or disc pathology, vascular abnormalities, among many others. I reviewed the list of red flag features such as trauma, weight loss, abnormal neurological findings such as weakness, bowel or bladder incontinence, saddle paresthesia, as well as history of cancer, IV drug abuse, fever, to list a few. Based on history and physical examination, workup was initiated and results were reviewed. Clinical picture is consistent with sciatica. Patient has no red flags on my exam or history. She is very well-appearing, ambulatory and moving easily in the room during my exam. She is out of her Lyrica which I will refill. She has follow-up with her spinal surgeon on December 17. Using shared decision making, plan for discharge home to follow-up with primary care and/or specialist. Patient understands and agrees with plan for discharge. Discharged home in stable condition. Differential Diagnosis Differential Diagnoses: The differential diagnosis associated with the presentation includes (As above) Admission/Observation Consideration of admission/observation: Escalation of care including admission/observation considered Prescription Management I considered prescription management with: Pain Medication Chronic Conditions Patient?s care impacted by: Hypertension Discharge Plan Discharge Clinical Impression: Lumbar radiculopathy Patient Disposition: Home, Self-Care Instructions: Lumbar Radiculopathy (ED) Additional Instructions: Take your pregabalin 3 times a day until you see your doctor later this month. Return to the ER with any new or worsening symptoms including: Worsening pain in your back despite medication, fevers greater than 100?, loss of control of your legs, loss of bowel or bladder control, any new symptom that concerns you. Prescriptions: New pregabalin [Lyrica] 200 mg capsule 200 mg PO TID Qty: 90 0RF No Action methocarbamol 750 mg tablet 750 mg PO Q8H PRN (Reason: pain, moderate) Qty: 14 0RF Interventions: ED Discharge Assessment Last Done: 11/26/24 22:51 Discharge Date/Time: 11/26/24 22:52 Print Language: Panamanian
--- OUTSIDE RECORDS SUMMARY | 2024-11-26 20:14 | XMS_ITS | Clinical Summary ---
Author Organization [facility] Address [address] [place] [address] Care Team Providers Care [employer] Scientist Name Role Phone Unavailable Primary Care Provider Unavailabl e Social History Tobacco Use Types Packs/Day Years Used Date Smoking Tobacco: Never Assessed Comments Unknown Sex and Gender Information Value Date Recorded Sex Assigned at Not on file Legal Sex Female 5:44 AM EST Gender Identity Not on file Sexual Orientation Not on file Plan of Treatment Health Maintenance Due Date Last Done Comments Breast Cancer Screening 1968 DTaP,Tdap,and Td Vaccines (1 - Tdap) 1987 Hepatitis B Vaccines (1 of 3 - 19+ 3-dose series) 1987 Cervical Cancer Screening: P ap Smear 1989 Pneumococcal Vaccine: 50+ Ye ars (1 of 1 - PCV) 2018 Zoster Vaccines (1 of 2) 2018 COVID-19 Vaccine ( - 2023-2 5 season) 2023 Depression Screening 04/25/2024 Influenza Vaccine (#1) 2024 HIB Vaccines Aged Out No longer eligi ble based on patient's age to complete this topic HPV Vaccines Aged Out No longer eligi ble based on patient's age to complete this topic Hepatitis A Vaccines Aged Out No long er eligible based on patient's age to complete this topic IPV Vaccines Aged Out No longer eligi ble based on patient's age to complete this topic MMR Vaccines Aged Out No longer eligi ble based on patient's age to complete this topic Meningococcal ACWY Vaccine Aged Out N o longer eligible based on patient's age to complete this topic Meningococcal B Vaccine Aged Out No l onger eligible based on patient's age to complete this topic RSV Immunization Patients Un ariella 20 months Aged Out No longer eligible b ased on patient's age to complete this topic Varicella Vaccines Aged Out No longer eligible based on patient's age to complete this topic
[2024-11-26 20:37] VITALS: BP 192/83; PULSE 81; RESP 18; TEMP 36.7; O2SAT 100
[2024-11-26 22:51] VITALS: BP 192/83; PULSE 81; RESP 18; TEMP 36.7; O2SAT 100
== END 2024-11-26 22:52 | disposition home or self-care (01) ==
PROVIDERS: Emergency Provider Emergency Medicine
DX: M54.16 Radiculopathy, lumbar region (principal); M54.32 Sciatica, left side
CPT/HCPCS: 99283; 99284